=== PATIENT | male | born 1975 | race Caucasian/White ===

== ENCOUNTER → 2017-01-06 | Outpatient (CLI) | payer MEDICARE, OTHER ==
[2017-01-06 11:59] LABS: HEMATOCRIT 50.7 % (38.0-50.0); HEMOGLOBIN 16.7 gm/dL (13.0-16.0)
== END | disposition home or self-care (01) ==
LOC: CSSDAY 10:37
PROVIDERS: Surgery
DX: Z48.22 Encounter for aftercare following kidney transplant (principal)
CPT/HCPCS: 85014; 85018; 99195; G0463